=== PATIENT | male | born 1950 | race Caucasian/White ===

== ENCOUNTER → 2017-01-17 | Outpatient (CLI) | payer OTHER, MEDICARE | LOC: CIMAGING 16:25 | PROVIDERS: ATTEND Internal Medicine | DX: J44.9 Chronic obstructive pulmonary disease, unspecified (principal) | CPT/HCPCS: 71020-PO; G0463-PO ==

== ENCOUNTER → 2017-04-25 | Outpatient (CLI) | payer OTHER, MEDICARE | LOC: BHFA 13:00 | PROVIDERS: ATTEND Internal Medicine Cardiovascular Disease | DX: J45.909 Unspecified asthma, uncomplicated (principal) ==

== ENCOUNTER 2017-11-27 19:58 | Inpatient (IN) | payer OTHER, MEDICARE ==
--- NOTE | 2017-11-27 20:11 | EDPHY ---
H & P Time Seen by Provider: 11/27/17 20:11 HPI/ROS: Chief complaint. Dizzy, confusion HPI. Patient is a 67-year-old female here with his who notes episodes of dizziness and confusion this evening. 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 He has had no recent adjustments or manipulations to his neck. He tells me that he has had dizzy episodes for 1 week. His noted some confusion today regarding birthday celebration days this week again which day of the week it was. She notes that he was off balance with walking tonight and needed assistance to help with walking. Blood pressure was elevated with a diastolic of about 120. He vomited 1 time. The he tells me he has had episodes of double vision that last about 20 min. He tells me closing 1 eye and looking with the other eye is normal. However with both eyes open he will have episodes of double vision. Denies headache. No chest pain, no shortness of breath. Again vomiting x1. No abdominal pain. He has chronic mid back pain which is present and has been present previously. It is not new or different. ROS Constitutional. Elevated blood pressure Eyes. Episodes of double vision ENT. no sore throat, no nasal drainage Cardiovascular. no chest pain Respiratory. no shortness of breath, no cough Abdominal. no abdominal pain, no nausea/vomiting, no diarrhea . no problems urinating MS. no calf pain/swelling, no neck/back pain, no joint pain Skin. no rash Lymph. no swollen glands Neuro. Off balance with walking; confusion, dizziness Past Medical/Surgical History: Asthma Social History: , nonsmoker, no alcohol Physical Exam: General Appearance: Alert well-developed male mild distress. Blood pressure 154/98. Afebrile Eyes: Pupils equal and round no pallor or injection. ENT, Mouth: Mucous membranes are moist. Respiratory: There are no retractions, lungs are clear to auscultation. Cardiovascular: Regular rate and rhythm. Gastrointestinal: Abdomen is soft and nontender, no masses, bowel sounds normal. Neurological: Awake and alert, sensory and motor exams grossly normal. Speech is normal. Cranial nerves intact. Klusni-mu-ppqt is intact bilaterally. No pronator drift. Skin: Warm and dry, no rashes. Musculoskeletal: Neck is supple nontender. Extremities symmetrical, full range of motion. Psychiatric: Patient is oriented to person, place, time, there is no agitation. Constitutional: Initial Vital Signs Temperature (C) 36.6 C 11/27/17 20:00 Heart Rate 66 11/27/17 20:00 Respiratory Rate 18 11/27/17 20:00 Blood Pressure 164/111 H 11/27/17 20:00 O2 Sat (%) 92 11/27/17 20:00 O2 Delivery Mode Room Air Allergies/Adverse Reactions: "SULFIDES IN WINE" Allergy (Uncoded 11/27/17 20:32) "SULFIDES" Allergy (Uncoded 11/27/17 20:32) Home Medications: Medication Instructions Recorded NK [No Known Home Meds] 11/27/17 Medical Decision Making - Diagnostics EKG Interpretation: EKG interpreted by me shows wounds sinus rhythm normal interval. There is left axis deviation and incomplete right bundle branch block. Possible old inferior. QRS is otherwise normal. There is no significant ST elevation or depression. No Arrhythmia. The rate is 63 No old EKGs for comparison Imaging Results: Imaging Impressions Chest X-Ray 11/27/17 20:27 Impression: Moderate hypoventilatory features with bibasilar subsegmental atelectasis. When clinically feasible, PA and lateral upright views in the department are suggested with an improved ventilatory effort. Head CT 11/27/17 20:27 Impression: There is no acute intracranial abnormality identified on this unenhanced CT evaluation. If there is further clinical concern regarding the patient's symptoms, MR imaging is suggested, if not otherwise contraindicated. Findings were discussed with GABI CHARLES MD at 21:03, on 11/27/2017. Noncontrast head CT is normal Chest x-ray interpreted by me shows no evidence for pneumonia Procedures: IV normal saline ED Course/Re-evaluation: Re-evaluation 9:00 p.m.. Patient is stable. He tells me however he is surprises Saturday and does not remember the events of Saturday. The patient, his , and I discussed imaging and lab results. We discussed treatment plan including recommendation for admission. They expressed understanding and agreement I consulted and discussed the case with Dr. Sol, hospitalist, who agrees to the admission Differential Diagnosis: CVA, intoxication substance abuse, acute coronary syndrome are considered - Data Points Laboratory Results: Laboratory Results 04/18/18 20:15 11/27/17 20:15 11/27/17 11/27/17 11/27/17 20:15 20:15 20:15 WBC 7.53 10^3/uL 10^3/uL (3.80-9.50) RBC 5.76 10^6/uL 10^6/uL (4.40-6.38) Hgb 18.0 g/dL H g/dL (13.7-17.5) Hct 51.9 % H % (40.0-51.0) MCV 90.1 fL fL (81.5-99.8) MCH 31.3 pg pg (27.9-34.1) MCHC 34.7 g/dL g/dL (32.4-36.7) RDW 13.3 % % (11.5-15.2) Plt Count 160 10^3/uL 10^3/uL (150-400) MPV 10.8 fL fL (8.7-11.7) Neut % (Auto) 53.1 % % (39.3-74.2) Lymph % (Auto) 36.4 % % (15.0-45.0) Izard % (Auto) 6.8 % % (4.5-13.0) Eos % (Auto) 3.1 % % (0.6-7.6) Baso % (Auto) 0.3 % % (0.3-1.7) Nucleat RBC Rel Count 0.0 % % (0.0-0.2) Absolute Neuts (auto) 4.01 10^3/uL 10^3/uL (1.70-6.50) Absolute Lymphs (auto) 2.74 10^3/uL 10^3/uL (1.00-3.00) Absolute Monos (auto) 0.51 10^3/uL 10^3/uL (0.30-0.80) Absolute Eos (auto) 0.23 10^3/uL 10^3/uL (0.03-0.40) Absolute Basos (auto) 0.02 10^3/uL 10^3/uL (0.02-0.10) Absolute Nucleated RBC 0.00 10^3/uL 10^3/uL (0-0.01) Immature Gran % 0.3 % % (0.0-1.1) Immature Gran # 0.02 10^3/uL 10^3/uL (0.00-0.10) PT 12.8 SEC SEC (12.0-15.0) INR 0.94 (0.83-1.16) Sodium 141 mEq/L mEq/L (135-145) Potassium 3.7 mEq/L mEq/L (3.5-5.2) Chloride 103 mEq/L mEq/L (97-110) Carbon Dioxide 26 mEq/l mEq/l (22-31) Anion Gap 12 mEq/L mEq/L (8-16) BUN 25 mg/dL H mg/dL (7-23) Creatinine 0.9 mg/dL mg/dL (0.7-1.3) Estimated GFR > 60 Glucose 88 mg/dL mg/dL (70-100) Calcium 10.2 mg/dL mg/dL (8.5-10.4) Troponin I < 0.012 ng/mL ng/mL (0.000-0.034) Ethyl Alcohol 20 mg/dL H mg/dL (0-10) Medications Given: Discontinued Medications Sodium Chloride (Ns) 1,000 mls @ 0 mls/hr IV ONCE ONE; Wide Open PRN Reason: Protocol Stop: 11/27/17 20:27 Last Admin: 11/27/17 20:59 Dose: 1,000 mls Departure - Departure Disposition: [facility] Inpatient Acute Clinical Impression: Altered mental status Qualifiers: Altered mental status type: disorientation Qualified Code(s): R41.0 - Disorientation, unspecified Condition: Fair Referrals: NONE *PRIMARY CARE P,. [Primary Care Provider] - As per Instructions
[2017-11-27] MEDS ORDERED: NS 1,000 ML IV ONE (20:26)
--- NOTE | 2017-11-27 20:29 | CPEKG ---
Heart Rate: 63 RR Interval: 952 P-R Interval: 192 QRSD Interval: 112 QT Interval: 408 QTC Interval: 418 P [place]: 66 QRS [place]: -81 T Wave [place]: 47 EKG Severity - ABNORMAL ECG - EKG Impression: SINUS RHYTHM EKG Impression: INCOMPLETE RIGHT BUNDLE BRANCH BLOCK EKG Impression: PROBABLE INFERIOR INFARCT, OLD Electronically Signed By: Marco Mack 27-Nov-2017 20:36:33
[2017-11-27 20:35] LABS: PLATELET COUNT 160 10^3/uL (150-400)
[2017-11-27 20:54] LABS: INR 0.94 (0.83-1.16); PROTIME(PATIENT) 12.8 SEC (12.0-15.0)
[2017-11-27] MEDS ORDERED: ONDANSETRON 4 MG/2 ML VIAL IVP PRN (22:16)
[2017-11-27] MEDS ORDERED: ACETAMINOPHEN 325 MG TAB PO PRN (22:16)
[2017-11-27] MEDS ORDERED: NS 1,000 ML IV SCH (22:30)
[2017-11-27] MEDS ORDERED: hydrALAZINE 20 MG/ML VIAL IVP PRN (23:45)
[2017-11-28] MEDS ORDERED: ASPIRIN 325 MG TAB PO ONE (01:48)
--- NOTE | 2017-11-28 02:39 | GHP ---
[f rep st] HISTORY AND PHYSICAL DATE OF ADMISSION: 11/27/2017 SOURCE: Patient provides history, appears reliable. CHIEF COMPLAINT: Dizziness, confusion, and changes in vision. HISTORY OF PRESENT ILLNESS: This is a very pleasant 67-year-old gentleman without significant past medical history, presents to the emergency department today with complaints of intermittent episodes of dizziness for the past week and more acutely, onset of confusion and ataxia with episode of nausea and vomiting x1. Patient reports that he was feeling quite well all day and this evening, he went to his girlfriend's home where she noticed that he was having some difficulties recalling dates and appeared to be a little bit more confused than normal. Patient denies any reports or noticing any facial drooping, focal weakness. Patient did state he felt off balance because he experienced double vision, which did correct when he would cover one eye or the other. Patient denies any numbness or tingling. He was also experiencing some slight vertigo, which is a little different from his episodes of dizziness he has been experiencing over the week. Patient did not have any syncopal episodes. However, he reports his girlfriend told him he had lost all his color. REVIEW OF SYSTEMS: GENERAL: Patient without any recent illnesses. No fevers, chills. SKIN: No rashes or sores. ENT: Patient without any complaints of congestion, sore throat. EYES: Patient with double vision as noted above but no ocular pain. CV: Patient denies any chest pain or palpitations. RESPIRATORY: No shortness of breath or cough. GI: Nausea and vomiting with episode x1 as above in HPI. No abdominal pain. : No dysuria or hematuria. MUSCULOSKELETAL: Patient without any complaints of myalgias or joint pain. NEURO: See HPI. PSYCH: Patient without any mood changes. Remainder of review of systems negative except as noted above. ALLERGIES: Sulfide in wine. HOME MEDICATIONS: Include cwwc-dfy-lleeyja supplements including fish oil, turmeric, shark cartilage, vitamin K2, vitamin D, arginine. PAST MEDICAL HISTORY: Significant for asthma, intermittent. Patient without any recent requirement for nebulizer or inhaler. PAST SURGICAL HISTORY: Significant for cholecystectomy and appendectomy. Patient without any history of eye surgeries. FAMILY HISTORY: Negative for CAD, CVA, DM 2. SOCIAL HISTORY: Patient works as a chiropractor. He does not smoke or utilize any illicit drugs or marijuana. Patient does drink occasional liquor, but nothing on a daily basis. COR STATUS: Full. PHYSICAL EXAMINATION: VITALS: Upon arrival to the emergency department, blood pressure 164/111, heart rate 66, respiratory rate 18, O2 saturation 92% on room air, with temperature 36.6. Current blood pressure is available, 142/88, heart rate 68, respiratory rate 16, O2 saturation 96% on room air, with temperature 36.6. GENERAL: No acute distress. Very pleasant adult gentleman who is lying quietly in bed asleep, wakes easily to name. Patient is cooperative and pleasant, appears younger than stated age. HEAD: Normocephalic, atraumatic. EYES: Extraocular muscles are intact. Pupils equal, round, reactive, with decreased reactivity to light bilaterally but symmetric. No scleral icterus or conjunctival injection. ENT: Mucous membranes appear moist. No oropharyngeal erythema or exudates. Dentition intact. NECK: Supple. Trachea midline. CV: Regular rate and rhythm without any murmurs, rubs, or gallops appreciated. RESPIRATORY: Lungs grossly clear to auscultation bilaterally. No wheezes, rales, or rhonchi. Unlabored breathing. ABDOMEN: Positive bowel sounds. Soft , nontender to palpation. No rebound, guarding, or masses appreciated. : No suprapubic tenderness to palpation. No Loera catheter in place. EXTREMITIES : Patient without any cyanosis, clubbing, or edema. MUSCULOSKELETAL: Patient with strength 5/5 in upper and lower extremities bilaterally and symmetric. NEURO: Cranial nerves 2-12 are intact, symmetric bilaterally. No focal deficits. No facial drooping. Patient's oikumd-ks-gfim testing very slightly abnormal with intention tremor on the right. PSYCH: Thought process, content, and questions are all appropriate. LABORATORY STUDIES: WBC 7.53, H and H is 18.0 and 51.9, MCV 90.1, platelet count is 160. No bands. Sodium is 141, potassium 3.7, chloride 103, CO2 is 26 , anion gap 12, BUN is 25, creatinine 0.9, GFR greater than 60, glucose 88, calcium is 10.2. Troponin is negative. UA: Specific gravity of 1.016, pH of 5.0, trace ketones, positive nitrites, WBCs 10-15, bacteria trace. Alcohol level 20. Benzodiazepines positive. IMAGING: Images and reports reviewed by myself. Case discussed with radiologist. 1. Chest x-ray: Hypoventilatory features with bibasilar subsegmental atelectasis. No pleural effusion or pneumothorax. 2. CT head without contrast: Negative for acute intracranial abnormality. Trace mucosal thickening floor of the left maxillary sinus. 3. MRI of the brain without contrast: Evidence of acute infarct in the inferolateral right cerebellum and punctate foci of restricted effusion in the cephalad in the cerebellum. Area of acute infarct along the anterior margin of left thalamus. Minimal periventricular increased hyperintense signal in the deep white matter consistent with some chronic microvascular ischemic gliosis. EKG reviewed myself showing sinus rhythm in the 60s with an incomplete right bundle branch block, Q-waves in the inferior leads. QTc is 418. ASSESSMENT AND PLAN: A 67-year-old gentleman who presents with complaints of dizziness, confusion, ataxia, now with abnormal MRI. 1. Acute cerebrovascular accident with evidence of punctate infarcts in the right cerebella, cephalad of the cerebellum, and the left thalamus. Patient will be given a dose of aspirin. Neurology will be consulted in the morning. PT, OT, and full stroke protocol in place. Also, will obtain an echocardiogram with bubble in the morning as well. Patient with just a very slight intention tremor on qhgebg-bf-rsci testing on the right. Otherwise, neurologic exam at this time is within normal limits, and patient feels as though his symptoms are completely resolved at this point. Patient did pass swallow evaluation, and cardiac diet has been ordered. 2. elevated BPs without history of hypertension. hydralazine prn. 3. Abnormal urinalysis. At this point, patient is completely asymptomatic. Will hold off on any intervention unless patient should develop or have complaints. 4. Polycythemia. H and H are minimally elevated, likely some component of dehydration and hemoconcentration as patient's BUN is also slightly elevated. He is tolerating oral intake and will encourage oral hydration at this point. 5. Mildly elevated alcohol. Patient was having dinner and drinks occasional liquor, but denies any daily use. Will monitor closely and add CIWA if appropriate. 6. Fluid, electrolyte, nutrition. Saline lock IV. Tolerating oral hydration at this point. Electrolytes will be monitored, replaced if needed. Cardiac diet has been ordered. 7. Prophylaxis. SCDs, holding anticoagulation pending Neurology recommendations in setting of acute infarct. Patient will receive full-dose aspirin. 8. Cor status is full. DISPOSITION: Patient has been admitted to observation status. At this time, his symptoms are rapidly resolving. Pending further evaluation in the morning. /[id number]/MODL MTDD
[2017-11-28 06:15] LABS: PLATELET COUNT 143 10^3/uL (150-400)
[2017-11-28] MEDS ORDERED: ATORVASTATIN CALCIUM 40 MG TAB PO SCH (09:00)
[2017-11-28] MEDS ORDERED: ENOXAPARIN 40 MG/0.4 ML SYR SC SCH (09:00)
[2017-11-28] MEDS ORDERED: ASPIRIN 81 MG CHEWABLE TAB PO SCH (09:00)
--- NOTE | 2017-11-28 09:26 | HOSPPROG ---
Hospitalist Progress Note Assessment/Plan: Ischemic CVA - cerebellar and thalamus infarcts on MRI. B/L posterior circulation CVA, suspect shower emboli, likely from A fib. Will review with Neurology. 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 GF at bedside, notes memory deficits. No focal weakness. He denies CP or SOB. No raza or vision changes. He endorses palpitations 2-3 days ago. Objective: Vital Signs Temp Pulse Resp BP Pulse Ox 36.7 C 56 L 18 144/98 H 94 11/28/17 08:00 11/28/17 08:00 11/28/17 08:00 11/28/17 08:00 11/28/17 08:00 Laboratory Results 11/28/17 05:05 11/28/17 05:05 11/27/17 11/28/17 11/29/17 05:59 05:59 05:59 Intake Total 1000 Balance 1000 PT 12.8 SEC (12.0-15.0) 11/27/17 20:15 INR 0.94 (0.83-1.16) 11/27/17 20:15 - Physical Exam Constitutional: no apparent distress Eyes: PERRL Ears, Nose, Mouth, Throat: moist mucous membranes Cardiovascular: regular rate and rhythym, systolic murmur Respiratory: no respiratory distress, clear to auscultation Gastrointestinal: normoactive bowel sounds, soft, non-tender abdomen Skin: warm Musculoskeletal: full muscle strength Neurologic: AAOx3, other (no facial asymmetry, speech fluent, neg pronator drift , 5/5 muscle strength UE and LE b/l) Psychiatric: interacting appropriately ICD10 Worksheet Patient Problems: Problems Problem Status Onset Altered mental status Acute
--- NOTE | 2017-11-28 10:08 | ASMTCMCOM ---
CM Note CM Note Notes: Chart reviewed. 67 year old male admitted via ED for symptoms of dizziness and ams. He will be seen by Neurology. Therapies pending. Needs to be determined at this time. CM to follow. Date Signed: 11/28/2017 10:07 AM Electronically Signed By:Becka Coronado RN
[2017-11-28] MEDS ORDERED: IOPAMIDOL (ISOVUE 370) 100 ML BTL IV ONE (10:17)
--- NOTE | 2017-11-28 14:45 | ASMTCMCOM ---
CM Note CM Note Notes: Per hospitalist, patient to transfer to [place]. Emtala form filled out, records copied to CD and thumb drive. RN aware of room and report number to call. [facility] arranged for 4:30 pm. Plan transfer to [place]. Date Signed: 11/28/2017 02:45 PM Electronically Signed By:Becka Coronado RN
--- NOTE | 2017-11-28 14:46 | ASMTLACE ---
LACE Length of stay for Answers: Less than 1 day current admission Comorbidities - select Answers: Other Notes: Asthma all that apply # of Emergency department Answers: 1-2 visits in the last 6 months Score: 2 Date Signed: 11/28/2017 02:45 PM Electronically Signed By:Becka Coronado RN
--- NOTE | 2017-11-28 14:56 | GDS ---
[f rep st] DISCHARGE SUMMARY DISCHARGE DIAGNOSES: 1. Acute ischemic stroke. 2. Right vertebral artery thrombosed aneurysm. 3. Hypertension. HISTORY: For details, please see the History and Physical dated November 28, 2017. In brief, the patie iveth is a 67-year-old male with no significant past medical history who [facility] with 2 days of dizziness, confusion, vision changes and gait instability with disequilibrium. CT head without contrast was negative for acute abnormality. MRI without contrast showed acute infar ct in the inferior lateral, right cerebellum and punctate foci of restricted diffusion in the cephala d in the cerebellum, as well as an area of acute infarct along the anterior margin of his left thalam us. He was admitted to the hospital for further stroke workup and management. HOSPITAL COURSE: The patient admitted to the medical-surgical Stroke Unit. He was given a full-dose aspirin on arrival and started on high-dose statin, atorvastatin 80 mg daily. His LDL cholesterol i s 156. He was moderately hypertensive and was managed with permissive hypertension. An echocardiogr am was performed, results are still pending. Consideration was given to shower emboli from atrial fi brillation. CT angiogram of the head and neck was ordered this morning and reveal thrombosed 1 cm ri ght vertebral artery aneurysm with severe stenosis as well as moderate stenosis of the left vertebral artery origin, and moderate stenosis of the left external carotid origin; atherosclerosis with no si gnificant stenosis in the internal carotid arteries. Case was discussed with the stroke neurologist at [facility], Dr. Clement, who recommends transfer for formal angiography and consideration of intravascul ar stenting. It is possible he is continuing to shower emboli from this thrombosed vertebral artery. He has been monitored on telemetry with no evidence of atrial fibrillation at this juncture. He raza s had no acute neurologic changes since arrival, though he continues to have confusion with difficult y processing information. DISPOSITION: Patient is discharged to [facility] for higher level of stroke evaluation. The case was reviewed with Dr. Foreign GONZALES, and the accepting physician at [facility] is Dr. Clement. DISCHARGE MEDICATIONS: Aspirin 325 mg p.o. daily, atorvastatin 80 mg p.o. daily. He will likely nee d to start an antihypertensive agent prior to hospital discharge as well. FOLLOWUP: Dr. Foreign Gonzales, neurologist. /[id number]/MODL
--- NOTE | 2017-11-28 15:12 | ECHO ---
[email or web address] [address] [address] Main: [phone] Fax: Transthoracic Echocardiogram Name: YASMINE HOWE MR#: [id number] Study Date: 11/28/2017 Study Time: 08:01 AM Date of : 1950 Age: 67 year(s) Height: 185.4 cm (73 in.) Weight: 83.92 kg (185 lb.) BSA: 2.08 m2 Gender: Male Examination: Echo Indication: Image Quality: Adequate Contrast: Requested by: Janine Gar BP: 152 mmHg/92 mmHg Heart Rate: Rhythm: Indication: Procedure Staff Transmission Design Engineer: Rubina Tabor [facility] Reading Physician: Roc Cox MD Requesting Provider: Conclusions: Normal size left ventricle. No LV hypertrophy. Normal global systolic LV function. EF is 54 %. No regional wall motion abnormality. Diastolic dysfunction is present. . Normal RV function. An agitated saline study was performed and was negative for intracardiac shunting. Mild mitral valve regurgitation is present. Mild aortic valve regurgitation is present. Mild tricuspid regurgitation is present. There is no pulmonic regurgitation seen. Normal size aortic root measuring 3.2 cm. Measurements: Chambers Valvular Assessment AV/MV Valvular Assessment TV/PV Normal Normal Normal Name Value Range Name Value Range Name Value Range Ao Jackeline (2D): 3.2 cm (1.4 cm-2.6 AV meanP mmHg ( - ) PV Vmax: 1.00 m/s (0.6 m/s-0.9 cm) GLORY (VTI): 3.0 cm ( - ) m/s) IVSd (2D): 1.2 cm (0.6 cm-1.1 MV E Vmax: 0.69 m/s ( - ) PV PGmax: 4 mmHg ( - ) cm) MV A Vmax: 0.82 m/s ( - ) LVDd (2D): 4.7 cm (4.2 cm-5.9 MV E/A: 0.84 ( - ) cm) MV PHT: 0.075 s ( - ) LVDs (2D): 2.9 cm (2.1 cm-4 cm) MVA (PHT): 2.9 s ( - ) LVPWd (2D): 1.1 cm (0.6 cm-1 cm) LVOTd 2.2 cm 2.2 cm mm LVEF (BP): 54 % (>=55 %) Patient: YASMINE HOWE Study Date: 11/28/2017 Page 1 of 2 08:01 AM RVDd(2D): 2.8 cm (1.9 cm-3.8 cmmm) Continued Measurements: Chambers Valvular Assessment AV/MV Valvular Assessment TV/PV Name Value Name Value Name Value LADs: 3.7 cm MV DecTime: 246 m/s CVP (est.): 5 mmHg LADs Lon.9 cm MV E' Septal: 0.06 m/s LA Area: 20.5 cm2 MV E/E' Septal: 10.70 LA Volume: 63 ml MV E/E' Lateral: 8.70 LA Volume Index: 30.3 ml/m2 RA Area: 16.0 cm2 Additional Vessels Name Value Ao Ascendin.9 cm Inferior Vena Cava: 1.2 cm Findings: Left Ventricle: Normal size left ventricle. No LV hypertrophy. Normal global systolic LV function. EF is 54 %. No regional wall motion abnormality. Diastolic dysfunction is present. . Right Ventricle: Normal size right ventricle. Normal RV function. Left Atrium: The left atrium is normal in size. An agitated saline study was performed and was negative for intracardiac shunting. Right Atrium: The right atrium is normal in size. Mitral Valve: The mitral valve is normal in appearance and function. Mild mitral valve regurgitation is present. No mitral stenosis is present. Aortic Valve: The aortic valve is normal in appearance and function. Mild aortic valve regurgitation is present. No aortic valve stenosis is present. Tricuspid Valve: The tricuspid valve is normal in appearance and function. Mild tricuspid regurgitation is present. Pulmonic Valve: The pulmonic valve is normal in appearance and function. There is no pulmonic regurgitation seen. Aorta: The aorta is normal. Normal size aortic root measuring 3.2 cm. Normal size ascending aorta measuring 2.9 cm. IVC: The IVC is normal sized. Pericardium: No pericardial effusion. No pleural effusion. (No Signature Object) Patient: YASMINE HOWE Study Date: 11/28/2017 Page 2 of 2 08:01 AM [id number]
--- NOTE | 2017-11-28 15:32 | GCON ---
[f rep st] CONSULTATION NEUROLOGY CONSULT DATE OF CONSULTATION: 11/28/2017 REFERRING PHYSICIAN: Janine Gar MD CHIEF COMPLAINT: Confusion. 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 He denies any significant past medical history. He is a nonsmoker. He states that 2 days ago, he began having some very minimal problems with memory or confusion, it is difficult for him to describe. Again, these symptoms started 2 days prior to him coming to the emergency department. They were very subtle and he was not initially concerned. Over the ensuing 48 hours, the symptoms were progressive with the development of 2 discrete episodes of binocular double vision, which spontaneously resolved. He again was not sure what that represented and did not seek medical care. He then developed decreased balance prior to admission, which concerned him, so he came to the emergency department. He came last night, over 48 hours after symptom onset and was found to have some elevated blood pressure at 164/111, and had a full evaluation including neuro imaging. MRI of the brain showed acute infarcts in the cerebellum and anterior left thalamus that were fairly small, punctate and bilateral. Echocardiogram was done this morning and still pending. He has been on ECG monitor without any evidence of atrial fibrillation that I am aware of. 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 There was also noted stenosis of the left vertebral artery at the origin, moderate stenosis of the left external carotid artery at the origin. There was also atherosclerosis without significant stenosis in both internal carotid arteries. REVIEW OF SYSTEMS: Only pertinent to the HPI, with the addition of some very rare palpitations that he told another provider, but denied when I asked him directly. For past medical history, social history, family history, home medications, allergies see Dr. Gar's H and P. PHYSICAL EXAM: VITAL SIGNS: Blood pressure is 144/98, temperature 36.7, respirations 18. GENERAL: The patient is very pleasant, in no acute distress. HIGHER MENTAL FUNCTION: He is awake, alert, he had 5/5 naming, 5/5 in following commands, and 5/5 on repetition. CRANIAL NERVES: He had full extraocular movements. Face was symmetric. Facial sensation is intact. MOTOR : He had no focal weakness. No pronator drift. SENSATION: Normal in all 4 extremities. COORDINATION: [id number] was normal bilaterally. IMPRESSION AND PLAN: 1. Stroke 2. 1 cm right vertebral artery aneurysm with thrombosis and severe stenosis I contacted [facility] immediately upon finding the angiography results to discuss further treatment options. The [facility] team recommended transfer for transfemoral angiography to consider an interventional approach, to see if any treatments would be available for the stenosis and other findings described above. This would be a [id number] transfer with the accepting physician being Dr. Clement. I called Dr. Bowling, Hospital Medicine, who was kind to arrange for the transfer immediately. The patient has been on anti-platelet therapy since admission, which is congruent with the [facility] team's recommendations. They do not want any anticoagulation as he will be going to angiography immediately upon arrival to [facility]. He will be transferring shortly from our hospital. No further recommendations now. We will sign off as he is transferring out of the hospital , and follow up as needed. Please do not hesitate to call if there are any questions or changes in neurologic status that he may have prior to transfer. Thank you for this consultation. seventy minutes floor time, interviewing, extensive records, neuro imaging, counseling with the patient and coordination of care. /[id number]/MODL MTDD
[2017-11-28 16:20] VITALS: BP 150/91
--- NOTE | 2017-11-28 16:47 | PDMN ---
Medical Necessity Medical necessity: Change to IP, as of 11/28/17, per MD; los >2 mn for ongoing management of ischemic CVA& permissive htn; admit for further workup/monitoring , Neuro consult, med management & therapies; per progress note & order 11/28/17
[2017-11-29] MEDS ORDERED: ASPIRIN 325 MG TAB PO ONE (09:00)
[2017-11-29] MEDS ORDERED: ASPIRIN EC 325 MG TAB PO SCH (09:00)
== END 2017-11-28 16:32 | disposition short-term general hospital (02) | DRG 66 ==
LOC: INTOOBSV 21:20 → OBSVTOIN 22:21 → F3N 11-28
PROVIDERS: ADMIT Family Medicine; ATTEND Hospitalist
DX: I63.011 Cerebral infarction due to thrombosis of right vertebral artery (principal); I72.6 Aneurysm of vertebral artery; H53.2 Diplopia; R26.81 Unsteadiness on feet; R41.0 Disorientation, unspecified; I10 Essential (primary) hypertension
CPT/HCPCS: 80305; 92507-GN; 92523-GN; 97161-GP; 97165-GO; G0378; G0480; G8978-GP-CI; G8979-GP-CI; G8980-GP-CI; G8987-GO-CI; G8988-GO-CI; G8989-GO-CI; G9165-GN-CI; G9166-GN-CJ; J1650; Q9967

== ENCOUNTER 2018-08-27 08:21 | Emergency (ER) | payer OTHER, MEDICARE ==
--- NOTE | 2018-08-27 08:49 | EDPHY ---
H & P Time Seen by Provider: 08/27/18 08:34 HPI/ROS: CHIEF COMPLAINT: Right elbow pain HISTORY OF PRESENT ILLNESS: Patient is a 67-year-old male who presents emergency department with right elbow pain. 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 The patient states that he woke this morning with right elbow pain. It is worse with movement, primarily straightening his arm. He states he has had 1 episode of this previously. He was diagnosed with a bursitis and treated with Rocephin. This feels identical. He states the the Rocephin while worked well and resolved his symptoms. Patient denies any recent trauma. He has had no fevers or chills. He has no significant redness surrounding his elbow. Patient went saw his primary care physician Dr. Baker earlier this morning. After evaluation in the office he was sent to the emergency department to receive a dose of Rocephin. REVIEW OF SYSTEMS: 10 systems were reveiwed and are negative with the exception of the elements mentioned in the history of present illness. Past Medical/Surgical History: Includes acute ischemic stroke, right vertebral artery thrombosed aneurysm, hypertension, previous elbow bursitis Social history: Patient does not smoke Smoking Status: Never smoked Physical Exam: Vitals noted. Afebrile GENERAL: Well-appearing, in no acute distress, alert. HEENT: Eyes normal to inspection. NECK: Normal, supple. RESPIRATORY: No respiratory distress. CVS: Well perfused. ABDOMEN: Benign. SKIN: Normal color, no rash, warm, dry. No pallor. EXTREMITIES: Patient's right elbow is mildly swelling. Nose no surrounding erythema or warmth. No streaking up the arm. Patient is neurovascular intact distally. Patient is able to range his elbow with some mild discomfort. NEURO/PSYCH: Alert and oriented, normal mood and affect, normal motor sensory exam. No obvious cranial nerve deficit. Constitutional: Initial Vital Signs Temperature (C) 36.7 C 08/27/18 08:29 Heart Rate 60 08/27/18 08:29 Respiratory Rate 18 08/27/18 08:29 Blood Pressure 170/100 H 08/27/18 08:29 O2 Sat (%) 93 08/27/18 08:29 O2 Delivery Mode Room Air Allergies/Adverse Reactions: "SULFIDES IN WINE" Allergy (Uncoded 08/27/18 08:28) "SULFIDES" Allergy (Uncoded 08/27/18 08:28) Home Medications: Medication Instructions Recorded Herbals/Supplements -Info Only 1 ea PO DAILY 11/27/17 Aspirin EC [Aspirin EC 325 mg (*)] 325 mg PO DAILY #90 tab 11/28/17 Atorvastatin Calcium [Lipitor 40 80 mg PO DAILY #90 tab 11/28/17 mg (*)] Dicloxacillin Sodium [Dynapen 500 500 mg PO Q6H 7 Days cap 08/27/18 MG (*)] Lopressor 50 mg (*) 08/27/18 Medical Decision Making ED Course/Re-evaluation: In the emergency department I discussed possible etiologies with the patient. I answered all his questions. I did discuss concern for septic joint and explained this diagnosis. This time I do not feel the patient needs joint aspiration. I do not feel blood work or cultures would be beneficial. Patient was given a dose of Rocephin 1 g IV. Patient has an allergy to Bactrim. Post antibiotic administration the patient was recheck. He was doing well. No complaints. The patient will be discharged with dicloxacillin 500 mg four times daily. Patient will follow up with Dr. Baker in 1-2 days. He will return emergency department sooner if his symptoms worsen. Patient was given warnings prior to leaving. Differential Diagnosis: My differential includes but is not limited to bursitis, septic joint, gout, pseudogout cellulitis, abscess, fracture Departure - Departure Disposition: Home, Routine, Self-Care Clinical Impression: Elbow pain, right Condition: Good Instructions: Swollen Joint (ED), Elbow Bursitis (ED) Additional Instructions: Take your entire course of antibiotics. Return with increasing redness, swelling, fever, joint stiffness or any other concerns. You need to see Dr. Baker in 1-2 days without fail. Referrals: Cristian Cash MD [Primary Care Provider] - As per Instructions Arash Baker MD [Medical Doctor] - 1-2 days without fail Prescriptions: Dicloxacillin Sodium [Dynapen 500 MG (*)] 500 mg PO Q6H 7 Days cap
[2018-08-27 09:33] VITALS: BP 153/94
== END 2018-08-27 09:30 | disposition home or self-care (01) ==
LOC: CED 08:21
DX: M25.521 Pain in right elbow (principal)
CPT/HCPCS: 96365; 99284; J0696

== ENCOUNTER → 2018-08-29 | Outpatient (CLI) | payer OTHER, MEDICARE | LOC: FIMAGING 13:26 | PROVIDERS: ATTEND Orthopaedic Surgery Hand Surgery | DX: S52.041A Displaced fracture of coronoid process of right ulna, initial encounter for closed fracture (principal) ==

== ENCOUNTER → 2018-09-03 | Outpatient (CLI) | payer OTHER, MEDICARE | LOC: FIMAGING 12:06 | PROVIDERS: ATTEND Orthopaedic Surgery Hand Surgery | DX: M25.421 Effusion, right elbow (principal) ==

== ENCOUNTER → 2019-01-12 | Outpatient (CLI) | payer OTHER, MEDICARE | LOC: FIMAGING 09:35 ==

== ENCOUNTER → 2019-02-02 | Outpatient (CLI) | payer OTHER, MEDICARE | LOC: BHFA 13:00 ==